=== PATIENT | male | born 1950 | race Caucasian/White ===

== ENCOUNTER 2020-08-16 09:00 | Inpatient (IN) ==
[2020-08-16] MEDS ORDERED: DEXTROSE 50% 25 GM/50 ML VIAL IV PRN (10:05)
[2020-08-16] MEDS ORDERED: GLUCAGON 1 MG VIAL IM PRN (10:05)
[2020-08-16] MEDS ORDERED: CLORAZEPATE 3.75 MG TABLET PO PRN (10:58)
[2020-08-16] MEDS ORDERED: oxyCODONE/ACETAMINOPHEN 5-325 MG TABLET PO PRN (11:10)
[2020-08-16 11:51] LABS: Basophils % 0.5 % (0.0-0.8); Eosinophils # 0.1 10*3/uL (0.0-0.87); Eosinophils % 0.8 % (0.00-10.9); Hematocrit 40.7 VOL% (42.0-52.0); Hemoglobin 13.3 GM/DL (14.0-18.0); Immature Granulocytes % 0.5 %; Immature Granulocytes Absolute 0.04 #; Lymphocytes # 1.8 10*3/uL (1.4-4.0); Lymphocytes % 20.7 % (21.2-54.2); Mean Corpuscular HGB Conc 32.7 GM/DL (32-36); Mean Corpuscular Volume 88.9 FL (87-102); Mean Platelet Volume 10.1 FL (9.6-12.0); Monocytes % 8.9 % (1.7-12.7); Neutrophils % 68.6 % (38.7-73.9); Platelet Count 269 T/CUMM (130-400); Red Blood Count 4.58 MC/CUMM (3.8-5.5); Red Cell Distribution Width 14.5 % (9.3-17.3); White Blood Count 8.5 T/CUMM (4-12)
[2020-08-16 12:13] LABS: Albumin 3.3 G/DL (3.4-5.0); Bilirubin,Total 0.5 MG/DL (0.2-1.0); Calcium 8.6 MG/DL (8.5-10.1); Osmolality,Calculated 279.3 MOS/KG (273-304); Total Protein 6.9 G/DL (6.4-8.3)
[2020-08-16] MEDS: CHLORHEXIDINE 4% SOLN 118 ML BOTTLE TOP SCH ×3 (12:30→20:57)
[2020-08-16] MEDS ORDERED: LORazepam 1 MG TABLET PO ONE (14:23)
[2020-08-16] MEDS ORDERED: PANTOPRAZOLE 40 MG TABLET PO ONE (14:23)
[2020-08-16] MEDS ORDERED: ZALEPLON 5 MG CAPSULE PO PRN (14:26)
[2020-08-16] MEDS ORDERED: NITROGLYCERIN SL 0.4 MG TABLET SL PRN (14:26)
[2020-08-16 20:02] LABS: ABG Base Excess 3.8 MMOL/L (-2.5-2.5); ABG HCO3 27.8 MMOL/L (20-26); ABG Oxygen Saturation 96.7 % (95-100); ABG PCO2 40.3 MM HG (35-48); ABG PO2 83.7 MM HG (80-95)
[2020-08-16] MEDS: FLUDROCORTISONE 0.1 MG TABLET PO SCH (20:46)
[2020-08-16] MEDS: CHLORHEXIDINE 0.12% ORAL RINSE 60 ML BOTTLE SWISH/SPIT SCH (20:46)
[2020-08-16] MEDS ORDERED: ATORVASTATIN 40 MG TABLET PO SCH (21:00)
[2020-08-16] MEDS ORDERED: ASPIRIN EC 81 MG TABLET PO SCH (21:00)
[2020-08-16] MEDS ORDERED: PANTOPRAZOLE 40 MG TABLET PO SCH (21:00)
[2020-08-17] MEDS ORDERED: PAPAVERINE 60 MG/2 ML VIAL ONE (04:21)
[2020-08-17] MEDS ORDERED: VANCOMYCIN 500 MG VIAL ONE (04:22)
[2020-08-17] MEDS ORDERED: VANCOMYCIN 1,000 MG VIAL ONE (04:22)
[2020-08-17] MEDS ORDERED: LORazepam 1 MG TABLET PO ONE (05:00)
[2020-08-17] MEDS ORDERED: VANCOMYCIN INJ 1,000 MG in SODIUM CHLORIDE 0.9% 250 ML IV ONE (05:00)
[2020-08-17] MEDS ORDERED: PANTOPRAZOLE 40 MG TABLET PO ONE (05:00)
[2020-08-17] MEDS: SODIUM CHLORIDE 0.9% 1,000 ML IV SCH (05:20)
[2020-08-17] MEDS ORDERED: HEPARIN/NACL 0.9% 2 UNITS/ML 500 ML IV ONE (05:37)
[2020-08-17] MEDS ORDERED: PHENYLEPHRINE DRIP 20 MG/250 ML PREMIX IV ONE (05:37)
[2020-08-17] MEDS ORDERED: MINERAL OIL/PETROLATUM OPH OINT 3.5 GM TUBE ONE (05:52)
[2020-08-17] MEDS ORDERED: AMINOCAPROIC ACID 5,000 MG/20 ML VIAL ONE ×4 (05:59)
[2020-08-17] MEDS ORDERED: MIDAZOLAM 10 MG/2 ML VIAL ONE ×3 (06:06)
[2020-08-17] MEDS ORDERED: ePHEDrine 50 MG/ML VIAL ONE (06:06)
[2020-08-17] MEDS ORDERED: SUFentanil 250 MCG/5 ML AMP ONE (06:07)
[2020-08-17] MEDS ORDERED: CALCIUM CHLORIDE 1,000 MG/10 ML VIAL IV ONE ×2 (06:08→10:34)
[2020-08-17] MEDS ORDERED: ETOMIDATE 40 MG/20 ML VIAL IV ONE ×2 (06:09→06:10)
[2020-08-17] MEDS ORDERED: NITROPRUSSIDE 50 MG/2 ML VIAL ONE (07:01)
[2020-08-17] MEDS ORDERED: POTASSIUM CHLORIDE RIDER 100 ML IV ONE (07:02)
[2020-08-17] MEDS ORDERED: ALBUMIN 5% 12.5 GM/250 ML VIAL IV ONE (07:02)
[2020-08-17] MEDS ORDERED: PHENYLEPHRINE DRIP 40 MG/250 ML PREMIX IV ONE (07:02)
[2020-08-17 07:40] LABS: ABG HCO3 27.2 MMOL/L (20-26); ABG Oxygen Saturation 99.9 % (95-100); ABG PCO2 42.6 MM HG (35-48); ABG PH 7.423 (7.35-7.45); ABG TCO2 24.7 MMOL/L (23-27); Glucose Heart Surgery 130 MG/DL (74-106); Hematocrit Heart Surgery 35.7 PERCENT (42-52); Hemoglobin Heart Surgery 11.6 G/DL (14.0-18.0); Ionized Calcium Arterial 1.15 MMOL/L (1.21-1.46); PCO2 Patient Temp Arterial 42.6 MMHG; PH Patient Temp Arterial 7.423; Patient Temperature 37 CELCIUS; Potassium Heart/CVR 2.9 MMOL/L (3.5-5.1); Sodium Heart/CVR 145 MMOL/L (135-145)
[2020-08-17] MEDS ORDERED: AMIODARONE 150 MG/3 ML VIAL ONE ×2 (07:55→10:38)
[2020-08-17 08:08] LABS: Amorphous Crystals,Urine Occasional /HPF (Few); Bilirubin,Urine Negative (Negative); Blood, Urine Negative (Negative); Glucose,Urine (UA) Negative (Negative); Ketones,Urine Negative (Negative); Mucus,Urine Occasional /LPF (Occasional); Nitrite,Urine Negative (Negative); Protein,Urine Negative; RBC,Urine 2 /HPF (0-4); Urine Appearance CLEAR (Clear); Urine Color Straw (Yellow); Urine Specific Gravity 1.009 (1.001-1.035); Urine Urobilinogen < 2.0 EU/DL (0.2-1.0); WBC,Urine <1 /HPF (0-6)
[2020-08-17 08:51] LABS: Hematocrit Heart Surgery 24.7 PERCENT (42-52); Hemoglobin Heart Surgery 7.9 G/DL (14.0-18.0); PCO2 Patient Temp Venous 32.4 MM HG; PH Patient Temp Venous 7.515; PO2 Patient Temp Venous 35.7 MM HG; Potassium Heart/CVR 3.9 MMOL/L (3.5-5.1); VBG Base Excess 3.5 MEQ/L (0-4); VBG HCO3 27.3 MEQ/L (24-28); VBG Oxygen Saturation 81.5 %; VBG PCO2 37.5 MMHG (41-51); VBG PH 7.47
[2020-08-17] MEDS ORDERED: SODIUM CHLORIDE 0.9% 300 ML IV ONE (09:22)
[2020-08-17] MEDS ORDERED: SEVOFLURANE 1 UNIT/15 MINUTE INH ONE (09:22)
[2020-08-17] MEDS ORDERED: SODIUM CHLORIDE 0.9% 250 ML IV ONE (09:22)
[2020-08-17] MEDS ORDERED: SODIUM CHLORIDE 0.9% 1,000 ML IV ONE (09:22)
[2020-08-17] MEDS ORDERED: LACTATED RINGERS 1,000 ML IV ONE (09:22)
[2020-08-17 09:39] LABS: Hematocrit Heart Surgery 28.6 PERCENT (42-52); Hemoglobin Heart Surgery 9.2 G/DL (14.0-18.0); PCO2 Patient Temp Venous 35.3 MM HG; PH Patient Temp Venous 7.49; PO2 Patient Temp Venous 41.3 MM HG; Potassium Heart/CVR 3.5 MMOL/L (3.5-5.1); VBG Base Excess 3.7 MEQ/L (0-4); VBG HCO3 27.6 MEQ/L (24-28); VBG Oxygen Saturation 86.2 %; VBG PCO2 40.8 MMHG (41-51); VBG PH 7.445; VBG PO2 50.7 MMHG (17-40)
[2020-08-17 10:05] LABS: Hematocrit Heart Surgery 29.2 PERCENT (42-52); Hemoglobin Heart Surgery 9.4 G/DL (14.0-18.0); PCO2 Patient Temp Venous 40.6 MM HG; PH Patient Temp Venous 7.441; PO2 Patient Temp Venous 41.8 MM HG; Potassium Heart/CVR 4.5 MMOL/L (3.5-5.1); VBG Base Excess 3.2 MEQ/L (0-4); VBG Oxygen Saturation 76.9 %; VBG PCO2 40.6 MMHG (41-51); VBG PH 7.441; VBG PO2 41.8 MMHG (17-40)
[2020-08-17 10:23] LABS: ABG Base Excess 0.5 MMOL/L (-2.5-2.5); ABG HCO3 24.9 MMOL/L (20-26); ABG Oxygen Saturation 99.7 % (95-100); ABG PCO2 38.8 MM HG (35-48); ABG PH 7.416 (7.35-7.45); ABG TCO2 22.7 MMOL/L (23-27); Glucose Heart Surgery 202 MG/DL (74-106); Hematocrit Heart Surgery 30.1 PERCENT (42-52); Hemoglobin Heart Surgery 9.7 G/DL (14.0-18.0); Ionized Calcium Arterial 1.17 MMOL/L (1.21-1.46); PCO2 Patient Temp Arterial 38.8 MMHG; PH Patient Temp Arterial 7.416; Patient Temperature 37 CELCIUS; Potassium Heart/CVR 3.3 MMOL/L (3.5-5.1); Sodium Heart/CVR 145 MMOL/L (135-145)
[2020-08-17] MEDS ORDERED: ALBUMIN 25% 25 GM/100 ML VIAL IV ONE (10:32)
[2020-08-17] MEDS ORDERED: LIDOCAINE 2% 5 ML VIAL ONE (10:32)
[2020-08-17] MEDS ORDERED: DEXTROSE 5% KCL 20 MEQ 20 MEQ/1,000 ML BAG IV ONE (10:33)
[2020-08-17] MEDS ORDERED: methylPREDNISolone SOD SUC 1,000 MG/8 ML VIAL ONE (10:33)
[2020-08-17] MEDS ORDERED: MANNITOL 100 GM/500 ML BAG IV ONE (10:33)
[2020-08-17] MEDS ORDERED: MAGNESIUM SULFATE 5 GM/10 ML VIAL IV ONE (10:33)
[2020-08-17] MEDS ORDERED: PROTAMINE SULFATE 250 MG/25 ML VIAL IV ONE (10:33)
[2020-08-17] MEDS ORDERED: PROTAMINE SULFATE 50 MG/5 ML VIAL IV ONE ×3 (10:34→11:09)
[2020-08-17] MEDS ORDERED: SODIUM BICARBONATE 50 MEQ/50 ML VIAL IV ONE (10:34)
[2020-08-17] MEDS ORDERED: POTASSIUM CHLORIDE 20 MEQ/10 ML VIAL ONE (10:34)
[2020-08-17] MEDS ORDERED: HEPARIN 10,000 UNIT/10 ML VIAL ONE (10:34)
[2020-08-17] MEDS ORDERED: FUROSEMIDE 20 MG/2 ML VIAL ONE (10:34)
[2020-08-17] MEDS ORDERED: AMIODARONE 450 MG/9 ML VIAL IV ONE (10:45)
[2020-08-17] MEDS: AMIODARONE INJ 450 MG in DEXTROSE 5% 241 ML IV SCH ×2 (11:00→18:32)
[2020-08-17] MEDS ORDERED: INSULIN REGULAR 100 UNIT/ML IV PRN (11:08)
[2020-08-17] MEDS ORDERED: ONDANSETRON 4 MG/2 ML VIAL IV PRN (11:08)
[2020-08-17] MEDS ORDERED: ALBUMIN 5% 12.5 GM in PREMIX 1 EACH IV PRN (11:08)
[2020-08-17] MEDS ORDERED: ACETAMINOPHEN 650 MG SUPP RECTAL PRN (11:08)
[2020-08-17] MEDS ORDERED: PHENYLEPHRINE DRIP 40 MG/250 ML PREMIX IV PRN (11:08)
[2020-08-17] MEDS ORDERED: CHLORHEXIDINE 4% SOLN 118 ML BOTTLE TOP PRN (11:08)
[2020-08-17] MEDS ORDERED: MAGNESIUM SULF RIDER 2 GM in PREMIX 1 EACH IV PRN (11:08)
[2020-08-17] MEDS ORDERED: MAGNESIUM SULF RIDER 4 GM in PREMIX 1 EACH IV PRN (11:08)
[2020-08-17] MEDS ORDERED: POTASSIUM CHLORIDE RIDER 10 MEQ in PREMIX 1 EACH IV PRN (11:08)
[2020-08-17] MEDS ORDERED: DEXTROSE 50% 25 GM/50 ML VIAL IV PRN ×2 (11:08)
[2020-08-17] MEDS ORDERED: INSULIN REGULAR DRIP 100 ML IV SCH (11:08)
[2020-08-17] MEDS ORDERED: MIDAZOLAM 10 MG/2 ML VIAL IV PRN (11:08)
[2020-08-17] MEDS ORDERED: NITROPRUSSIDE 100 MG in DEXTROSE 5% 250 ML IV PRN (11:08)
[2020-08-17] MEDS ORDERED: VECURONIUM 10 MG VIAL IV PRN ×2 (11:08)
[2020-08-17] MEDS ORDERED: INSULIN REGULAR 100 UNIT/ML IV ONE (11:08)
[2020-08-17] MEDS ORDERED: SODIUM CHLORIDE 0.45% 1,000 ML IV SCH ×2 (11:08)
[2020-08-17] MEDS ORDERED: CALCIUM CHLORIDE 1,000 MG/10 ML SYRINGE IV PRN (11:08)
[2020-08-17 11:13] LABS: ABG Base Excess 1.2 MMOL/L (-2.5-2.5); ABG HCO3 25.5 MMOL/L (20-26); ABG Oxygen Saturation 99.5 % (95-100); ABG PCO2 41.5 MM HG (35-48); ABG PH 7.406 (7.35-7.45); ABG TCO2 23.5 MMOL/L (23-27); Basophils % 0.3 % (0.0-0.8); Eosinophils # 0.1 10*3/uL (0.0-0.87); Eosinophils % 0.9 % (0.00-10.9); Glucose Heart Surgery 184 MG/DL (74-106); Hematocrit 31.9 VOL% (42.0-52.0); Hematocrit Heart Surgery 32.3 PERCENT (42-52); Hemoglobin 10.7 GM/DL (14.0-18.0); Hemoglobin Heart Surgery 10.5 G/DL (14.0-18.0); Immature Granulocytes % 0.9 %; Immature Granulocytes Absolute 0.11 #; Lymphocytes # 1.5 10*3/uL (1.4-4.0); Lymphocytes % 11.8 % (21.2-54.2); Mean Corpuscular HGB Conc 33.5 GM/DL (32-36); Mean Corpuscular Volume 87.2 FL (87-102); Mean Platelet Volume 10.3 FL (9.6-12.0); Monocytes % 7.6 % (1.7-12.7); Neutrophils % 78.5 % (38.7-73.9); Platelet Count 224 T/CUMM (130-400); Red Blood Count 3.66 MC/CUMM (3.8-5.5); Red Cell Distribution Width 14.5 % (9.3-17.3); White Blood Count 12.4 T/CUMM (4-12)
[2020-08-17 11:24] LABS: INR 1.3; PT Patient Result 13.3 SECS (9.8-11.9)
[2020-08-17] MEDS: POTASSIUM CHLORIDE RIDER 20 MEQ in PREMIX 1 EACH IV PRN ×4 (11:26→20:00)
[2020-08-17] MEDS: LACTATED RINGERS 250 ML IV PRN ×2 (11:30→16:20)
[2020-08-17 11:40] LABS: CKMB % 5.6 %
[2020-08-17 11:45] LABS: Albumin 3.1 G/DL (3.4-5.0); Bilirubin,Total 0.6 MG/DL (0.2-1.0); Calcium 8.7 MG/DL (8.5-10.1); Osmolality,Calculated 292.4 MOS/KG (273-304); Total Protein 5.8 G/DL (6.4-8.3); Troponin I 3.42 NG/ML (0.00-0.045)
[2020-08-17] MEDS ORDERED: AMIODARONE INJ 450 MG in DEXTROSE 5% 241 ML IV SCH (12:00)
[2020-08-17] MEDS: METOPROLOL TARTRATE 25 MG TABLET PO SCH ×2 (12:09→21:23)
[2020-08-17] MEDS: MIDAZOLAM 2 MG/2 ML VIAL IV PRN ×2 (13:33→19:23)
[2020-08-17 14:03] LABS: ABG Base Excess 0.4 MMOL/L (-2.5-2.5); ABG HCO3 24.8 MMOL/L (20-26); ABG Oxygen Saturation 99.5 % (95-100); ABG PCO2 38.5 MM HG (35-48); ABG PH 7.417 (7.35-7.45); ABG TCO2 22.2 MMOL/L (23-27); Glucose Heart Surgery 210 MG/DL (74-106); Hematocrit Heart Surgery 34.1 PERCENT (42-52); Hemoglobin Heart Surgery 11.1 G/DL (14.0-18.0); Potassium Heart/CVR 3.1 MMOL/L (3.5-5.1)
[2020-08-17] MEDS ORDERED: NITROGLYCERIN DRIP 50 MG/250 ML BOTTLE IV ONE (14:03)
[2020-08-17] MEDS: MORPHINE 4 MG/1 ML VIAL IV PRN ×2 (14:15→17:04)
[2020-08-17] MEDS ORDERED: NITROGLYCERIN DRIP 50 MG/250 ML BOTTLE IV PRN (14:32)
[2020-08-17] MEDS: INSULIN REGULAR 100 UNIT/ML SUBCUT SCH ×2 (16:20→21:22)
[2020-08-17 17:07] LABS: ABG Base Excess -0.5 MMOL/L (-2.5-2.5); ABG Oxygen Saturation 98.4 % (95-100); ABG PCO2 42.2 MM HG (35-48); ABG PH 7.376 (7.35-7.45); ABG TCO2 22.3 MMOL/L (23-27); Glucose Heart Surgery 235 MG/DL (74-106); Hematocrit Heart Surgery 33.7 PERCENT (42-52); Hemoglobin Heart Surgery 10.9 G/DL (14.0-18.0); Potassium Heart/CVR 4.1 MMOL/L (3.5-5.1)
[2020-08-17] MEDS ORDERED: FUROSEMIDE 40 MG/4 ML VIAL ONE (17:56)
[2020-08-17] MEDS ORDERED: FUROSEMIDE 40 MG/4 ML VIAL IV ONE (17:59)
[2020-08-17 19:15] LABS: ABG HCO3 24.4 MMOL/L (20-26); ABG Oxygen Saturation 97.8 % (95-100); ABG PCO2 39.8 MM HG (35-48); ABG PH 7.401 (7.35-7.45); ABG PO2 97.4 MM HG (80-95); Glucose Heart Surgery 244 MG/DL (74-106); Hematocrit Heart Surgery 35.5 PERCENT (42-52); Hemoglobin Heart Surgery 11.5 G/DL (14.0-18.0); Potassium Heart/CVR 4.1 MMOL/L (3.5-5.1)
[2020-08-17 19:53] LABS: CKMB % 5.2 %
[2020-08-17 19:55] LABS: Troponin I 3.24 NG/ML (0.00-0.045)
[2020-08-17] MEDS: MORPHINE 10 MG/1 ML VIAL IV PRN (19:55)
[2020-08-17] MEDS: CHLORHEXIDINE 0.12% ORAL RINSE 60 ML BOTTLE SWISH/SPIT SCH (21:23)
[2020-08-17] MEDS: VANCOMYCIN INJ 1,000 MG in SODIUM CHLORIDE 0.9% 250 ML IV SCH (23:10)
[2020-08-17 23:38] LABS: ABG Base Excess -0.6 MMOL/L (-2.5-2.5); ABG HCO3 23.9 MMOL/L (20-26); ABG Oxygen Saturation 98.4 % (95-100); ABG PCO2 40.3 MM HG (35-48); ABG PH 7.388 (7.35-7.45); ABG TCO2 21.9 MMOL/L (23-27); Glucose Heart Surgery 176 MG/DL (74-106); Hematocrit Heart Surgery 33.4 PERCENT (42-52); Hemoglobin Heart Surgery 10.8 G/DL (14.0-18.0); Potassium Heart/CVR 4.1 MMOL/L (3.5-5.1)
[2020-08-18] MEDS: POTASSIUM CHLORIDE RIDER 20 MEQ in PREMIX 1 EACH IV PRN ×2 (00:15→06:55)
[2020-08-18 00:39] LABS: ABG Base Excess -0.9 MMOL/L (-2.5-2.5); ABG HCO3 23.7 MMOL/L (20-26); ABG Oxygen Saturation 98.5 % (95-100); ABG PCO2 40.7 MM HG (35-48); ABG PH 7.381 (7.35-7.45); ABG TCO2 21.8 MMOL/L (23-27); Glucose Heart Surgery 182 MG/DL (74-106); Hematocrit Heart Surgery 32.6 PERCENT (42-52); Hemoglobin Heart Surgery 10.6 G/DL (14.0-18.0); Potassium Heart/CVR 4.6 MMOL/L (3.5-5.1)
[2020-08-18] MEDS ORDERED: FUROSEMIDE 40 MG/4 ML VIAL IV ONE (01:19)
[2020-08-18] MEDS: MORPHINE 10 MG/1 ML VIAL IV PRN ×3 (03:08→06:57)
[2020-08-18 04:35] LABS: ABG Base Excess 1.9 MMOL/L (-2.5-2.5); ABG HCO3 26.8 MMOL/L (20-26); ABG Oxygen Saturation 96.9 % (95-100); ABG PCO2 43.1 MM HG (35-48); ABG PH 7.411 (7.35-7.45); ABG TCO2 28.1 MMOL/L (23-27); Glucose Heart Surgery 157 MG/DL (74-106); Hemoglobin Heart Surgery 10.7 G/DL (14.0-18.0); Potassium Heart/CVR 3.6 MMOL/L (3.5-5.1)
[2020-08-18 04:55] LABS: Basophils % 0.1 % (0.0-0.8); Hematocrit 31.2 VOL% (42.0-52.0); Hemoglobin 10.2 GM/DL (14.0-18.0); Immature Granulocytes % 0.6 %; Immature Granulocytes Absolute 0.08 #; Mean Corpuscular HGB Conc 32.7 GM/DL (32-36); Mean Corpuscular Volume 89.4 FL (87-102); Mean Platelet Volume 10.8 FL (9.6-12.0); Monocytes % 8.2 % (1.7-12.7); Neutrophils % 84.1 % (38.7-73.9); Platelet Count 221 T/CUMM (130-400); Red Blood Count 3.49 MC/CUMM (3.8-5.5); White Blood Count 13.9 T/CUMM (4-12)
[2020-08-18 05:12] LABS: Alanine Aminotransferase 21 U/L (16-61); Albumin 3.1 G/DL (3.4-5.0); Alkaline Phosphatase 73 U/L (45-117); Aspartate Amino Transferase 33 U/L (0-37); Bilirubin,Direct < 0.100 MG/DL (0.0-0.20); Blood Urea Nitrogen 12 MG/DL (7-18); Calcium 7.3 MG/DL (8.5-10.1); Estimated Glom Filtration Rate 110 ML/MIN; Glucose 150 MG/DL (74-106); Osmolality,Calculated 290.7 MOS/KG (273-304)
[2020-08-18 05:22] LABS: CKMB % 4.5 %
[2020-08-18] MEDS: AMIODARONE INJ 450 MG in DEXTROSE 5% 241 ML IV SCH (05:22)
[2020-08-18 05:24] LABS: Troponin I 1.74 NG/ML (0.00-0.045)
[2020-08-18] MEDS ORDERED: INSULIN REGULAR 100 UNIT/ML SUBCUT SCH ×2 (07:30)
[2020-08-18] MEDS: CHLORHEXIDINE 0.12% ORAL RINSE 60 ML BOTTLE SWISH/SPIT SCH ×2 (07:32→08:01)
[2020-08-18] MEDS: SODIUM CHLORIDE 0.9% 1,000 ML IV SCH (07:32)
[2020-08-18] MEDS: FLUDROCORTISONE 0.1 MG TABLET PO SCH ×2 (07:32→21:43)
[2020-08-18] MEDS: METOPROLOL TARTRATE 25 MG TABLET PO SCH ×2 (08:01→22:32)
[2020-08-18] MEDS ORDERED: oxyCODONE/ACETAMINOPHEN 5-325 MG TABLET PO PRN (08:47)
[2020-08-18] MEDS: ASPIRIN EC 81 MG TABLET PO SCH (08:49)
[2020-08-18] MEDS ORDERED: ASPIRIN EC 325 MG TABLET PO SCH (09:00)
[2020-08-18] MEDS: MAGNESIUM CHLORIDE 64 MG TABLET PO SCH (09:05)
[2020-08-18] MEDS: AMIODARONE 200 MG TABLET PO SCH ×2 (09:05→21:44)
[2020-08-18] MEDS: CETIRIZINE 10 MG TABLET PO SCH (09:05)
[2020-08-18] MEDS: CHOLECALCIFEROL 1,000 UNIT TABLET PO SCH (09:05)
[2020-08-18] MEDS: DULoxetine 30 MG CAPSULE PO SCH (09:05)
[2020-08-18] MEDS: KETOROLAC 30 MG/1 ML VIAL IV PRN (09:06)
[2020-08-18] MEDS: DOCUSATE SODIUM 100 MG CAPSULE PO SCH ×2 (10:20→21:43)
[2020-08-18] MEDS: POLYETHYLENE GLYCOL POWDER 17 GM PACK PO SCH (10:20)
[2020-08-18] MEDS: VANCOMYCIN INJ 1,000 MG in SODIUM CHLORIDE 0.9% 250 ML IV SCH ×2 (11:10→21:52)
[2020-08-18 11:12] LABS: CKMB % 3.6 %; Troponin I 1.44 NG/ML (0.00-0.045)
[2020-08-18] MEDS ORDERED: HEPARIN/NACL 0.9% 2 UNITS/ML 500 ML IV ONE (13:49)
[2020-08-18] MEDS ORDERED: VECURONIUM 10 MG VIAL IV ONE (13:49)
[2020-08-18] MEDS ORDERED: ESMOLOL 100 MG/10 ML VIAL IV ONE (13:49)
[2020-08-18] MEDS ORDERED: PHENYLEPHRINE DRIP 20 MG/250 ML PREMIX IV ONE (13:49)
[2020-08-18] MEDS: oxyCODONE/ACETAMINOPHEN 5-325 MG TABLET PO PRN (17:58)
[2020-08-18] MEDS: ATORVASTATIN 80 MG TABLET PO SCH (21:44)
[2020-08-18] MEDS: ASCORBIC ACID 500 MG TABLET PO SCH (21:44)
[2020-08-19] MEDS ORDERED: KETOROLAC 30 MG/1 ML VIAL IV PRN (04:40)
[2020-08-19 05:31] LABS: Basophils % 0.1 % (0.0-0.8); Hematocrit 28.2 VOL% (42.0-52.0); Hemoglobin 9.1 GM/DL (14.0-18.0); Immature Granulocytes % 0.7 %; Immature Granulocytes Absolute 0.14 #; Lymphocytes % 5.3 % (21.2-54.2); Mean Corpuscular HGB Conc 32.3 GM/DL (32-36); Mean Corpuscular Volume 91.9 FL (87-102); Mean Platelet Volume 11.4 FL (9.6-12.0); Monocytes % 6.4 % (1.7-12.7); Neutrophils % 87.5 % (38.7-73.9); Platelet Count 187 T/CUMM (130-400); Red Blood Count 3.07 MC/CUMM (3.8-5.5); White Blood Count 18.7 T/CUMM (4-12)
[2020-08-19 05:58] LABS: Alanine Aminotransferase 18 U/L (16-61); Albumin 2.6 G/DL (3.4-5.0); Alkaline Phosphatase 67 U/L (45-117); Aspartate Amino Transferase 18 U/L (0-37); Bilirubin,Direct < 0.100 MG/DL (0.0-0.20); Blood Urea Nitrogen 16 MG/DL (7-18); Calcium 7.8 MG/DL (8.5-10.1); Estimated Glom Filtration Rate 116 ML/MIN; Glucose 141 MG/DL (74-106); Osmolality,Calculated 285.1 MOS/KG (273-304); Total Protein 5.5 G/DL (6.4-8.3)
[2020-08-19] MEDS ORDERED: LACTULOSE 20 GM/30 ML UDCUP PO PRN (07:50)
[2020-08-19] MEDS ORDERED: LACTULOSE 20 GM/30 ML UDCUP PO ONE (07:50)
[2020-08-19] MEDS: KETOROLAC 30 MG/1 ML VIAL IV PRN ×2 (09:17→23:17)
[2020-08-19] MEDS: POLYETHYLENE GLYCOL POWDER 17 GM PACK PO SCH (09:20)
[2020-08-19] MEDS: DIAZEPAM 5 MG TABLET PO SCH ×2 (09:23→21:30)
[2020-08-19] MEDS: MAGNESIUM CHLORIDE 64 MG TABLET PO SCH (09:23)
[2020-08-19] MEDS: PANTOPRAZOLE 40 MG TABLET PO SCH (09:23)
[2020-08-19] MEDS: ASPIRIN EC 81 MG TABLET PO SCH (09:24)
[2020-08-19] MEDS: DOCUSATE SODIUM 100 MG CAPSULE PO SCH ×2 (09:24→21:30)
[2020-08-19] MEDS: FLUDROCORTISONE 0.1 MG TABLET PO SCH ×2 (09:24→21:30)
[2020-08-19] MEDS: ASCORBIC ACID 500 MG TABLET PO SCH ×2 (09:24→21:30)
[2020-08-19] MEDS: DULoxetine 30 MG CAPSULE PO SCH (09:25)
[2020-08-19] MEDS: CETIRIZINE 10 MG TABLET PO SCH (09:25)
[2020-08-19] MEDS: CHOLECALCIFEROL 1,000 UNIT TABLET PO SCH (09:25)
[2020-08-19] MEDS: METOPROLOL TARTRATE 25 MG TABLET PO SCH ×2 (09:25→21:34)
[2020-08-19] MEDS: AMIODARONE 200 MG TABLET PO SCH ×2 (09:26→21:30)
[2020-08-19] MEDS: VANCOMYCIN INJ 1,000 MG in SODIUM CHLORIDE 0.9% 250 ML IV SCH (09:40)
[2020-08-19] MEDS ORDERED: METOPROLOL TARTRATE 5 MG/5 ML VIAL IV ONE (10:29)
[2020-08-19] MEDS ORDERED: AMIODARONE INJ 100 MG in DEXTROSE 5% 100 ML IV ONE (12:11)
[2020-08-19] MEDS ORDERED: DILTIAZEM 25 MG/5 ML VIAL IV ONE (12:12)
[2020-08-19] MEDS ORDERED: dilTIAZem Drip 125 MG/125 ML PREMIX IV SCH (12:30)
[2020-08-19] MEDS ORDERED: SODIUM CHLORIDE 0.9% 500 ML IV ONE (12:46)
[2020-08-19] MEDS: ATORVASTATIN 80 MG TABLET PO SCH (21:30)
[2020-08-19] MEDS: LACTULOSE 20 GM/30 ML UDCUP PO SCH (21:34)
[2020-08-20] MEDS: oxyCODONE/ACETAMINOPHEN 5-325 MG TABLET PO PRN ×2 (02:15→17:51)
[2020-08-20 05:55] LABS: Basophils % 0.1 % (0.0-0.8); Eosinophils % 0.2 % (0.00-10.9); Hematocrit 26.1 VOL% (42.0-52.0); Hemoglobin 8.4 GM/DL (14.0-18.0); Immature Granulocytes % 0.8 %; Lymphocytes % 14.8 % (21.2-54.2); Mean Corpuscular HGB Conc 32.2 GM/DL (32-36); Mean Corpuscular Volume 91.6 FL (87-102); Mean Platelet Volume 11.2 FL (9.6-12.0); Monocytes % 10.3 % (1.7-12.7); Neutrophils % 73.8 % (38.7-73.9); Platelet Count 178 T/CUMM (130-400); Red Blood Count 2.85 MC/CUMM (3.8-5.5); Red Cell Distribution Width 15.1 % (9.3-17.3); White Blood Count 13.3 T/CUMM (4-12)
[2020-08-20 06:16] LABS: Calcium 7.6 MG/DL (8.5-10.1); Osmolality,Calculated 292.4 MOS/KG (273-304)
[2020-08-20 06:21] LABS: Albumin 2.4 G/DL (3.4-5.0); Bilirubin,Direct 0.13 MG/DL (0.0-0.20); Bilirubin,Total 0.7 MG/DL (0.2-1.0); Calcium 7.7 MG/DL (8.5-10.1); Osmolality,Calculated 292.4 MOS/KG (273-304); Total Protein 5.2 G/DL (6.4-8.3)
[2020-08-20] MEDS ORDERED: POTASSIUM CHLORIDE 20 MEQ TABLET PO ONE (07:35)
[2020-08-20] MEDS ORDERED: AMIODARONE 200 MG TABLET PO SCH (09:24)
[2020-08-20] MEDS: MAGNESIUM CHLORIDE 64 MG TABLET PO SCH (09:42)
[2020-08-20] MEDS: ASPIRIN EC 81 MG TABLET PO SCH (09:42)
[2020-08-20] MEDS: AMIODARONE 200 MG TABLET PO SCH (09:43)
[2020-08-20] MEDS: ASCORBIC ACID 500 MG TABLET PO SCH ×2 (09:44→21:16)
[2020-08-20] MEDS: CHOLECALCIFEROL 1,000 UNIT TABLET PO SCH (09:45)
[2020-08-20] MEDS: PANTOPRAZOLE 40 MG TABLET PO SCH (09:47)
[2020-08-20] MEDS: DIAZEPAM 5 MG TABLET PO SCH ×2 (09:47→21:16)
[2020-08-20] MEDS: METOPROLOL TARTRATE 25 MG TABLET PO SCH ×2 (09:47→21:18)
[2020-08-20] MEDS: FLUDROCORTISONE 0.1 MG TABLET PO SCH ×2 (09:47→21:16)
[2020-08-20] MEDS: DOCUSATE SODIUM 100 MG CAPSULE PO SCH ×2 (09:47→21:16)
[2020-08-20] MEDS: DULoxetine 30 MG CAPSULE PO SCH (09:47)
[2020-08-20] MEDS: CETIRIZINE 10 MG TABLET PO SCH (09:48)
[2020-08-20] MEDS: POLYETHYLENE GLYCOL POWDER 17 GM PACK PO SCH (09:48)
[2020-08-20] MEDS: LACTULOSE 20 GM/30 ML UDCUP PO SCH ×2 (09:51→21:18)
[2020-08-20] MEDS: ATORVASTATIN 80 MG TABLET PO SCH (21:16)
[2020-08-21 06:19] LABS: Basophils # 0.1 10*3/uL (0.0-0.2); Basophils % 0.4 % (0.0-0.8); Eosinophils # 0.3 10*3/uL (0.0-0.87); Eosinophils % 2.2 % (0.00-10.9); Hematocrit 31.9 VOL% (42.0-52.0); Hemoglobin 10.3 GM/DL (14.0-18.0); Immature Granulocytes % 0.8 %; Lymphocytes # 3.1 10*3/uL (1.4-4.0); Lymphocytes % 25.9 % (21.2-54.2); Mean Corpuscular HGB Conc 32.3 GM/DL (32-36); Mean Corpuscular Volume 90.4 FL (87-102); Mean Platelet Volume 11.4 FL (9.6-12.0); Neutrophils % 62.7 % (38.7-73.9); Platelet Count 229 T/CUMM (130-400); Red Blood Count 3.53 MC/CUMM (3.8-5.5); Red Cell Distribution Width 14.8 % (9.3-17.3); White Blood Count 12.1 T/CUMM (4-12)
[2020-08-21 06:36] LABS: Osmolality,Calculated 281.1 MOS/KG (273-304)
[2020-08-21] MEDS ORDERED: POTASSIUM CHLORIDE 20 MEQ TABLET PO ONE (07:55)
[2020-08-21] MEDS ORDERED: AMIODARONE 200 MG TABLET PO SCH (07:56)
[2020-08-21] MEDS ORDERED: METOPROLOL TARTRATE 50 MG TABLET PO SCH (08:03)
[2020-08-21 08:22] VITALS: BP 135/81
[2020-08-21] MEDS ORDERED: DIAZEPAM 5 MG TABLET PO SCH (08:22)
[2020-08-21] MEDS: POLYETHYLENE GLYCOL POWDER 17 GM PACK PO SCH (09:44)
[2020-08-21] MEDS: DULoxetine 30 MG CAPSULE PO SCH (09:45)
[2020-08-21] MEDS: ASCORBIC ACID 500 MG TABLET PO SCH (09:46)
[2020-08-21] MEDS: PANTOPRAZOLE 40 MG TABLET PO SCH (09:46)
[2020-08-21] MEDS: MAGNESIUM CHLORIDE 64 MG TABLET PO SCH (09:46)
[2020-08-21] MEDS: DOCUSATE SODIUM 100 MG CAPSULE PO SCH (09:46)
[2020-08-21] MEDS: CHOLECALCIFEROL 1,000 UNIT TABLET PO SCH (09:46)
[2020-08-21] MEDS: ASPIRIN EC 81 MG TABLET PO SCH (09:47)
[2020-08-21] MEDS: CETIRIZINE 10 MG TABLET PO SCH (09:47)
[2020-08-21] MEDS: LACTULOSE 20 GM/30 ML UDCUP PO SCH (09:47)
[2020-08-21] MEDS: FLUDROCORTISONE 0.1 MG TABLET PO SCH (09:47)
[2020-08-21] MEDS: oxyCODONE/ACETAMINOPHEN 5-325 MG TABLET PO PRN (10:39)
== END 2020-08-21 12:42 | disposition home health service (06) | DRG 236 ==
LOC: N.ADMINP 09:00 → N.CVR 08-17 10:37 → N.TELES 08-18 09:41